=== PATIENT | male | born 1960 | race Caucasian/White ===

== ENCOUNTER 2020-04-21 08:32 | Outpatient (CLI) | payer OTHER, SELFPAY ==
--- NOTE | 2020-04-21 10:04 | XR_ITS ---
WS: [id number] Right shoulder, 2 views, 04/21/2020 Clinical Data: R SHOULDER PAIN Comparison: None. Findings: No fractures or dislocations are seen. The AC joint is normal. The adjacent right clavicle, right sca pula and ribs are normal. The soft tissues are unremarkable. XR/XR shoulder RT min 2V* [id number] Impression: Negative right shoulder.
[2020-04-21 10:29] LABS: Basophils % 0.5 %; Eosinophils # 0.1 10^3/uL (0.0-0.8); Eosinophils % 2.5 %; Hematocrit 41.6 % (42.0-52.0); Hemoglobin 13.3 g/dL (11.7-16.6); Lymphocytes # 1.7 10^3/uL (0.8-4.8); Lymphocytes % 42.9 %; Mean Corpuscular Hemoglobin 29.2 pg (28.0-34.0); Mean Corpuscular Volume 91.4 fL (80-94); Mean Platelet Volume 8.3 fL (7.4-10.4); Monocytes # 0.4 10^3/uL (0.2-0.9); Monocytes % 10.4 %; Neutrophils # 1.76 10^3/uL (1.8-7.7); Neutrophils % 43.7 %; Nucleated Red Blood Cells % 0 %; Platelet Count 269 10^3/cmm (130-400); Red Blood Count 4.55 10^6/uL (4.1-5.3); Red Cell Distribution Width 18.3 % (12.1-15.1)
[2020-04-21 11:05] LABS: Alanine Aminotransferase 23 U/L (0-41); Albumin Level 4.1 g/dL (3.5-5.2); Alkaline Phosphatase 134 IU/L (40-130); Anion Gap 16.4 (5-19); Aspartate Amino Transferase 30 U/L (0-40); Blood Urea Nitrogen 8 mg/dL (6-20); Calcium 9.4 mg/dL (8.5-10.5); Carbon Dioxide 26 mmol/L (22-29); Chloride 101 mmol/L (98-107); Globulin 3.3 g/dL (1.3-4.6); Glomerular Filtration Rate 171.4 mL/min (90-130); Glucose 121 mg/dL (65-115); Iron 65 ug/dL (59-158); Osmolality Calculated 290 mOsm/kg (285-295); Percent Saturation 13.2 % (20-50); Potassium 3.4 mmol/L (3.5-5.1); Sodium 140 mmol/L (136-145); Thyroid Stimulating Hormone 0.76 uIU/mL (0.27-4.20); Total Bilirubin 0.3 mg/dL (0.15-1.2); Total Iron Binding Capacity 490 mcg/dl; Total Protein 7.4 g/dL (6.6-8.7); Unsaturated Iron Binding 425 ug/dL (112-347)
--- NOTE | 2020-04-21 18:35 | ONC FU_ITS ---
Dr. Park Patient Follow-Up Note Patient: Jorje Bee Unit #: [id number]: [id number] Dicatated By: Beau Park M.D.Date of Visit:Apr 21, 2020 Onc Med Follow-up/Prog Note Chief Complaint: Thromboembolism. History of Present Illness: This is a 59 year-old man with right lower extremity deep vein thrombosis and pulmonary emboli. He has hypertension and he has had some mild degenerative arthritis. He has had no other prior medical illnesses. He has had numerous remote injuries. He had suffered an injury to his right knee about 2 years ago, significant enough that it caused the knee to swell up. On 08/23/2017 he presented to the emergency room with swelling and aching in his right leg of 2 days duration. Venous Doppler showed evidence of deep vein thrombosis involving the right popliteal vein and peroneal trunk. He was placed on overnight observation and treated initially with a apixaban 10 mg twice a day. On 08/26/2017 he reported increased pain and swelling in the right leg. His repeat venous Doppler showed progressed right leg deep vein thrombosis with extension into the mid right superficial femoral vein through the distal right superficial femoral vein and through right popliteal and peroneal veins. There was additional thrombus in the anterior tibial vein. The right greater saphenous vein was noted to be occluded below the knee. Further evaluation with CT scans of the chest, abdomen, and pelvis on 08/28/2017 showed linear opacification at the right lung base. The appearance favored atelectasis, though follow-up chest CT in 3 months was recommended to exclude neoplasm. Also noted were filling defects in proximal right and left pulmonary arteries with extension into multiple branches of the lower lobes consistent with at least moderate pulmonary emboli. And indeterminate lytic lesion was noted in the right ilium measuring 7 mm. The appearance was consistent with early metastatic site versus benign bone lesion. A cystic area in the central superior enlarged prostate gland was felt to be probably a utricle cyst. He was then admitted to the hospital and placed on an IV heparin drip, subsequently converted to Lovenox 1 mg/kg every 12 hours. He was discharged home on 09/01/2017 to continue Lovenox therapy as an outpatient. His further evaluation included bone scan which showed no evidence of metastatic disease and skeletal survey which showed no radiographic evidence of neoplastic process. His serum protein electrophoresis showed a subtle peak in the mid gamma region which appeared to show IgG specificity. It was not felt to be a diagnostic finding, but felt to possibly represent a very low concentration of paraprotein. A serum free light chain assay showed free kappa light chain 27.29 mg/L, free lambda light chain 29.43 mg/L, and normal kappa/lambda ratio at 0.93. He was not anemic, but his red cell indices were slightly macrocytic. He had normal renal function with BUN 4 and creatinine 0.6 mg/dL. He had mildly elevated total bilirubin at 1.9 mg/dL and slightly elevated alkaline phosphatase level. Calcium was normal at 7.7 mg/dL with albumin 2.3 g/dL. I had seen him initially on 09/20/2017. At that time there was still significant residual swelling of the right leg, with right leg calf circumference measuring 5 cm greater than the left. A repeat venous Doppler on 10/10/2017 showed evidence of chronic occlusive DVT of the popliteal vein. Initially he had continued anticoagulation with Lovenox. As his symptoms were not improving, I had contacted an invasive radiologist in [place], but with involvement limited to the popliteal vein, it was felt that he was not a candidate for thrombolysis or other intervention. His anti-Xa level was confirmed to be therapeutic. I had seen him for a follow-up visit on 11/12/2017 and his anticoagulation was subsequently transitioned to a apixaban. His medical history is otherwise significant for hypertension and degenerative arthritis. He has a history of smoking 1 pack of cigarettes daily. He sometimes chews tobacco. He has had at least moderate alcohol use. INTERIM HISTORY: In February 2018 he had called and reported increased pain in his right leg. A repeat venous Doppler on 03/03/2018 showed evidence of acute right lower extremity deep vein thrombosis. At that point his anticoagulation was changed back to therapeutic Lovenox. As of his follow-up visit in September 2018 he restarted treatment with rivaroxaban 20 mg daily. He is seen for a follow-up visit. Since I last saw him he has continued to have chronic pain in the right leg. The pain had been managed with hydrocodone/APAP, but he had to stop taking it when he was laid off work and had no insurance. He had recently been evaluated at [facility] with fairly acute onset of more severe pain in his right leg. His venous Doppler, though, reportedly just showed chronic changes. He says his energy has been pretty good, though he does have some fatigue. He is back to work again. ECOG score is 0. His appetite is good. He is not having fever or night sweats. He does have some chronic cough and he is still smoking. He does not complain of shortness of breath or chest pain. He occasionally has acid reflux. His bowels are generally loose and recently has had diarrhea. He has not been aware of any blood in the stool. He has no complaints. He also has chronic neck pain and recently has had increased pain in his right shoulder. He also complains that both legs hurt at night. His thinks he has restless leg syndrome. He does not complain of headache or dizziness. He occasionally has numbness/tingling. Medications: AmLODIPine Besylate 1 Tablet (of 5 mg) Oral daily, B-12 1 Tablet (of 1000 mcg) Oral b.i.d., B-Complex 1 Tablet Oral daily, Carvedilol 1 Tablet (of 25 mg) Oral b.i.d., Garlic 1 (1000 mg) Capsule Oral b.i.d., Hydrocodone-Acetaminophen 1 - 2 Tablet (of 10-325 mg) Oral q 4 to 6 hours PRN, Multivitamin Adult 1 Tablet Oral daily, Ben Bolt-3 1 Capsule (of 2400 mg) Oral b.i.d., Rivaroxaban 1 (20 mg) Tablet Oral daily, Vitamin C 1 (1000 mg) Capsule Oral b.i.d. Allergies: No Known Allergies. Vital Signs: Performed on Apr 21, 2020 08:52 Height - 69.00 in Weight - 180 lbs (HIGH) BSA - 1.98 sq.m BMI - 26.58 Temperature - 97.8 F (LOW) Pulse - 74 /min Respiration - 16 /min BP - 155/94 mm(hg) (HIGH) O2 Sat - 97 % Pain - 9 Physical Examination: Constitutional - He looks pretty good generally, Eyes - Sclerae nonicteric. Conjunctivae clear, ENMT - No lesions noted in the oral cavity, Hematologic/Lymphatic - No cervical, clavicular, or axillary adenopathy, Respiratory - Lungs are clear with good air movement bilaterally, Cardiovascular - Heart rhythm is regular. There is no murmur, gallop, or rub noted, Abdomen - Soft. Liver and spleen are not enlarged. There is no abdominal mass or ascites noted and there is no inguinal adenopathy, Extremities - There chronic venous stasis changes in the right leg. There is currently no edema, Neurologic - No focal neurologic deficits noted. Lab/Imaging: Test performed on Apr 21, 2020 10:23 Iron 65 mcg/dL Sodium 140 mmol/L TSH 0.76 uIU/mL Iron Binding Capacity (TIBC) 490 mcg/dl Potassium 3.4 mmol/L % Iron Saturation 13.2 % Chloride 101 mmol/L CO2 26 mmol/L UIBC 425 mcg/dL Anion Gap 16.4 BUN 8 mg/dL Creatinine 0.5 mg/dL Cr Clearance (Est) 188.2400 mL/min eGFR 171.4 mL/min Glucose 121 mg/dL Osmolality - Calculated 290 mOsm/kg Calcium 9.4 mg/dL Protein, Total 7.4 g/dL Albumin 4.1 g/dL Globulin 3.3 g/dL Bilirubin, Total 0.3 mg/dL ALT (SGPT) 23 U/L AST (SGOT) 30 U/L Alkaline Phosphatase 134 IU/L WBC 4.0 10 3/uL RBC 4.55 10 6/uL HGB 13.3 g/dL HCT 41.6 % MCV 91.4 fL MCH 29.2 pg MCHC 32.0 g/dL RDW 18.3 % Platelet Count 269 10 3/cmm MPV 8.3 fL Neutrophils 1.76 10 3/uL Lymphocytes 1.7 10 3/uL Monocytes 0.4 10 3/uL Eosinophils 0.1 10 3/uL Basophils 0.0 10 3/uL Neutrophil % 43.7 % Lymphocyte % 42.9 % Monocyte % 10.4 % Eosinophil % 2.5 % Basophils % 0.5 % NRBC % 0 % Problem List: 1. History of unprovoked thromboembolism including right lower extremity deep vein thrombosis and pulmonary emboli in August 2017. 2. Hypertension. 3. Degenerative arthritis. Problems Addressed with this Encounter and Plan: 1. History of unprovoked thromboembolism including right lower extremity deep vein thrombosis and pulmonary emboli in August 2017. He subsequently developed evidence of chronic thrombosis/venous stasis in the right leg, and he has chronic pain associated with it. There has been no evidence, though, of any new thromboembolism since he began anticoagulation with rivaroxaban in September 2018. In the absence of any evidence of new thrombosis he will continue treatment with rivaroxaban 20 mg daily. I will see him again in 6 months. In the meantime, he also will be given a prescription to restart hydrocodone 10/APAP 325 twice a day as needed. 2. Degenerative arthritis. He has chronic neck pain. Recently has had increased pain in his right shoulder. This may be related to a previous injury. He will be scheduled for x-ray of the right shoulder today and he will have further evaluation with MRI as indicated. Signed By: Beau Park M.D. <<Signature on File>>
== END 2020-04-21 08:33 | disposition home or self-care (01) ==
PROVIDERS: Family Provider Family Medicine; PCP Family Medicine; Visit Provider Internal Medicine Medical Oncology
DX: I82.401 Acute embolism and thrombosis of unspecified deep veins of right lower extremity (principal); I26.99 Other pulmonary embolism without acute cor pulmonale; I10 Essential (primary) hypertension; M19.90 Unspecified osteoarthritis, unspecified site; Z79.01 Long term (current) use of anticoagulants; M54.2 Cervicalgia; M25.511 Pain in right shoulder; D50.9 Iron deficiency anemia, unspecified
CPT/HCPCS: 36415; 73030; 80053; 83540; 83550; 84443; 85025; 99214

== ENCOUNTER 2020-06-20 07:06 | Outpatient (CLI) | payer OTHER, SELFPAY ==
--- NOTE | 2020-06-20 07:10 | MR_ITS ---
WS: [id number] MRI RIGHT SHOULDER NONCONTRAST TECHNIQUE: Sagittal T2, coronal T1, T2 and proton density imaging. Axial gradient PDE imaging. CLINICAL INFORMATION: RIGHT SHOULDER PAIN COMPARISON: None. FINDINGS: Advanced degenerative arthritis AC joint with mild edema. Small amount subacromial/subdeltoid fluid. Chronic thinning with calcific tendinitis involving the distal supraspinatus. Tendinopathy involving the distal supraspinatus. Small intrasubstance tear at the level of the acromion. Infraspinatus is in tact. Normal teres minor. Chronic thinning and tendinopathy of the distal subscapularis. Normal biceps tend on in the bicipital groove. Normal biceps labral anchor. Degenerative fraying of the glenoid labrum. MR/MR shoulder RT wo con* [id number] IMPRESSION: 1. Advanced osteoarthritis at the AC joint with mild edema. 2. Diffuse thinning with tendinopathy and chronic thinning involving the supra spinatus. Small intrasubstance tear at the level of the acromion. 3. Normal infraspinatus and teres minor. 4. Chronic thinning with tendinopathy involving the distal subscapularis. 5. Normal biceps tendon in the bicipital groove. 6. Advanced degenerative arthritis at the glenohumeral joint. 7. Normal biceps labral anchor.
== END 2020-06-20 07:07 | disposition home or self-care (01) ==
LOC: RADSHAW 07:08
PROVIDERS: PCP Family Medicine; Visit Provider Internal Medicine Medical Oncology
DX: M25.511 Pain in right shoulder (principal); M19.011 Primary osteoarthritis, right shoulder; R60.0 Localized edema
CPT/HCPCS: 73221

== ENCOUNTER 2021-01-30 12:55 | Emergency (ER) | payer OTHER, SELFPAY ==
[2021-01-30 12:59] VITALS: BP 168/92; PULSE 77; RESP 18; TEMP 37.4; O2SAT 95; BMI 26.6
--- NOTE | 2021-01-30 13:07 | W.ED.EXTPRO ---
HPI - Extremity Problem General: Chief complaint: Extremity Problem,Nontraumatic Stated complaint: DVT Time Seen by Provider: 01/30/21 13:07 History of Present Illness: HPI Narrative: Mr. Bee is a 60-year-old gentleman with significant history of DVTs on Xarelto presents the emergency department due to right thigh pain. He reports over the past week has had diarrhea and generalized malaise but no other specific infectious symptoms. He has spent most the time on his recliner. He started having aching in his right thigh with radiation up to the top of his leg and groin starting yesterday. Intensity is moderate. Course has persisted. This was nontraumatic in nature. This feels similar to prior DVTs though the radiation upwards is slightly different. He reports compliance with his Xarelto. He tested negative for Covid at clinic. He denies other changes in health, specific exacerbating or alleviating factors. Review of Systems General: Reports: 10 or more systems reviewed and unremarkable except in HPI and below Physical Exam Narrative: EXAM NARRATIVE: GENERAL/CONSTITUTIONAL - well-appearing. No acute distress. Eyes -no scleral icterus, no conjunctival injection ENMT - Atraumatic external nose and ears. Moist mucous membranes NECK - supple. trachea midline CARDIOVASCULAR - regular rate and rhythm. Peripheral pulses 2+ and equal. RESPIRATORY -clear to auscultation bilaterally. No retractions or accessory muscle use. ABDOMEN/GI -mild tenderness in right upper quadrant. No tenderness to percussion or evidence of peritonitis MSK - Extremities without obvious deformity. No skin changes or mass. There is tenderness palpation of right thigh medially SKIN - Warm, Dry NEURO - alert and appropriately oriented. Moves all extremities equally. PSYCH - Appropriate mood and affect Course ED course: - Patient was seen and evaluated by me at bedside - Patient placed on cardiac monitors, IV access obtained - Initial evaluation notable for exam as noted above, nontoxic. - X-ray without acute fracture identified. Impingement test on physical exam after x-ray read normal. No evidence of DVT. Upon reevaluation the patient expressed more concern regarding diarrhea and abdominal symptoms. At that time additional work-up ordered. - Labs notable for no leukocytosis. Metabolic panel with likely mild dehydration. Urinalysis not concerning for urinary tract infection. - Imaging notable for likely enterocolitis. No blood in stool reported in history. Symptoms < 10 days. - Upon serial reexamination after treatment the patient was mildly improved - Based on patient history, evaluation, labs, and imaging as interpreted the most likely cause of the patient's condition is enterocolitis. I discussed potential treatment options the patient is comfortable with likely viral diagnosis at this time with close follow-up. - The results of ED evaluation were discussed with the patient including prescriptions and/or symptomatic cares (if applicable) including appropriate and responsible use, followup plan, and return precautions. The patient verbalized understanding and felt safe for discharge. - Patient discharged in satisfactory condition. Vital Signs: Vital signs: Vital Signs Temperature 99.4 F 01/30/21 12:59 Pulse Rate 72 01/30/21 17:33 Respiratory Rate 18 01/30/21 17:33 Blood Pressure 157/85 01/30/21 17:33 Pulse Oximetry 98 01/30/21 17:33 MDM - Extremity (Nontraumatic) Medical Records: Attestation: I reviewed the patient's medical records. Lab Data: Attestation: I reviewed the patient's lab results. Labs: Lab Results 01/30/21 01/30/21 01/30/21 14:22 15:35 15:35 WBC 7.9 10^3/uL 10^3/ uL (4.0-10.0) RBC 4.41 10^6/uL 10^6 /uL (4.1-5.3) Hgb 15.2 g/dL g/dL (11.7-16.6) Hct 42.4 % % (42.0-52.0) MCV 96.1 fl H fl (80-94) MCH 34.5 pg H pg (28.0-34.0) MCHC 35.8 g/dL g/dL (30.0-36.0) RDW 11.9 % L % (12.1-15.1) Plt Count 316 10^3/cmm 10^3 /cmm (130-400) MPV 8.9 fL fL (7.4-10.4) Neut % (Auto) 69.4 % % Lymph % (Auto) 21.2 % % Slope % (Auto) 8.0 % % Eos % (Auto) 0.8 % % Baso % (Auto) 0.3 % % Neut # (Auto) 5.46 10^3/uL 10^3 /uL (1.8-7.7) Lymph # (Auto) 1.7 10^3/uL 10^3/ uL (0.8-4.8) Slope # (Auto) 0.6 10^3/uL 10^3/ uL (0.2-0.9) Eos # (Auto) 0.1 10^3/uL 10^3/ uL (0.0-0.8) Baso # (Auto) 0.0 10^3/uL 10^3/ uL (0.0-0.1) Nucleated RBC % (a uto) 0 % % Nucleated RBCs # 0.0 /100WBC /100W BC Sodium 134 mmol/L L mmol /L (136-145) Potassium 3.5 mmol/L mmol/L (3.5-5.1) Chloride 97 mmol/L L mmol/ L (98-107) Carbon Dioxide 20 mmol/L L mmol/ L (22-29) Anion Gap 20.5 H (5-19) BUN 14 mg/dL mg/dL (6-20) Creatinine 0.5 mg/dL L mg/dL (0.7-1.2) GFR Calculation 170.8 mL/min H mL /min (90-130) Glucose 94 mg/dL mg/dL (65-115) Calculated Osmolal ity 278 mOsm/kg L mOs m/kg (285-295) Calcium 8.4 mg/dL L mg/dL (8.5-10.5) Total Bilirubin 1.3 mg/dL H mg/dL (0.15-1.2) AST 32 U/L U/L (0-40) ALT 18 U/L U/L (0-41) Alkaline Phosphata se 99 IU/L IU/L (40-130) Total Protein 7.2 g/dL g/dL (6.6-8.7) Albumin 4.0 g/dL g/dL (3.5-5.2) Globulin 3.2 g/dL g/dL (1.3-4.6) Urine Color [place] (Yellow) Urine Appearance Clear (CLEAR) Urine pH 7 (5-7) Ur Specific Gravit y 1.005 (1.005-1.030) Urine Protein Neg (Negative) Urine Glucose (UA) Norm (Normal) Urine Ketones Negative (Negative) Urine Blood Neg (Negative) Urine Nitrate Negative (Negative) Urine Bilirubin 1+ H (Negative) Urine Urobilinogen 1 mg/dL H mg/dL (Negative) Ur Leukocyte Abimbola ase Negative (Negative) Discharge Plan Discharge Patient Disposition: Home Clinical Impression: Acute pain of right thigh, Enterocolitis Condition: Stable Discharge Orders: Discharge ED (Routine); Ordered 01/30/21 Ordered By: Luis F Johns Referrals: Catrachito Hidalgo MD [Primary Care Provider] - Patient Instructions: Colitis (ED) Activity Restrictions/Additional Instructions: Thank you for visiting emergency department. You were seen and evaluated for hip and abdominal pain. Your hip pain is likely musculoskeletal nature as no blood clot was identified. You do have enterocolitis noted on CT scan, this is most likely secondary to a viral infection. Please follow-up with your primary care provider. Please ensure that you are staying hydrated. Please return to the emergency department for worsening symptoms or anything else that you are concerned about and feel needs emergency department evaluation. Stand Alone Forms: Work/School Release Coding Level of Care Code ED Chemical Dependency Counselor for Everardo Cruz
--- NOTE | 2021-01-30 13:19 | USCV_ITS ---
Jorje Bee Age: 60 Gender: M : 1960 Exam Date: 01/30/2021 13:35 Ordering Phys: Luis F Johns MD Technologist: Judy Savage [place] [facility] [place]: RLE pain, history DVT HISTORY: RLE pain, history DVT PROCEDURES: On the right side, the common femoral, superficial femoral, profunda femoral, popliteal, posterior tibial, greater saphenous veins and the peroneal trunk were identified and interrogated in the standard fashion. FINDINGS: Negative for RLE DVT. CONCLUSIONS No evidence of right lower extremity DVT. Kalia Shrestha MD (Electronically Signed) Final Date: 30 January 2021 16:26 S
--- NOTE | 2021-01-30 13:49 | XR_ITS ---
WS: [id number] Exam: XR hip RT 2-3V wo/w pel* [id number] Date/Time of Exam: 01/30/2021 1:52 PM Reason For Exam: hip/thigh pain No acute fracture or dislocation. The joint compartments well maintained. Normal soft tissues. Acetab ular morphology is noted that could cause femoral acetabular impingement. XR/XR hip RT 2-3V wo/w pel* [id number] IMPRESSION: 1. No fracture or dislocation. 2. Acetabular morphology which might be seen with femoral acetabular impingemen t. This should be correlated with clinical symptoms.
[2021-01-30 14:31] VITALS: BP 162/100; PULSE 85; RESP 16; O2SAT 97
[2021-01-30 14:35] LABS: Add Urine Microscopic? NO; Charge for UA Resulting for Rev
[2021-01-30 15:03] LABS: Glucose Urine UA Norm (Normal); Ketones Urine Negative (Negative); Protein Urine Neg (Negative); Specific Gravity, Urine 1.005 (1.005-1.030); Urine Appearance Clear (CLEAR); Urine Color Orange (Yellow); pH Urine 7 (5-7)
[2021-01-30 15:04] LABS: Bilirubin Urine 1+ (Negative); Blood Urine Neg (Negative); Leukocyte Esterase Urine Negative (Negative); Nitrate Urine Negative (Negative); Urobilinogen Urine 1 mg/dL (Negative)
--- NOTE | 2021-01-30 15:15 | CTR_ITS ---
PROCEDURE INFORMATION: Exam: CT Abdomen And Pelvis With Contrast Exam date and time: 01/30/2021 3:15 PM Age: 60 years old Clinical indication: Abdominal pain; Additional info: Diarrhea > 1 week, rlq pain TECHNIQUE: Imaging protocol: Computed tomography of the abdomen and pelvis with contrast. Radiation optimization: All CT scans at this facility use at least one of these dose optimization techniques: automated exposure control; mA and/or kV adjustment per patient size (includes targeted exams where dose is matched to clinical indication); or iterative reconstruction. Contrast material: OMNI 300; Contrast volume: 95 ml; Contrast route: INTRAVENOUS (IV); COMPARISON: CT Chest/Abdomen/Pelvis w IV* 08/28/2017 1:05 PM RADIATION DOSE METRICS: Total DLP (mGy-cm): 1483.93 FINDINGS: Liver: Normal. No mass. Gallbladder and bile ducts: Normal. No calcified stones. No ductal dilation. Pancreas: Normal. No ductal dilation. Spleen: Normal. No splenomegaly. Adrenal glands: Normal. No mass. Kidneys and ureters: Normal. No hydronephrosis. Stomach and bowel: There is probable wall thickening of the ascending and transverse colons versus underdistention. There also air-fluid levels in small bowel. No bowel obstruction or pneumatosis. Bowel evaluation is limited without intraluminal contrast. Appendix: No evidence of appendicitis. Intraperitoneal space: Unremarkable. No free air. No significant fluid collection. Vasculature: Unremarkable. No abdominal aortic aneurysm. Lymph nodes: Unremarkable. No enlarged lymph nodes. Urinary bladder: Unremarkable as visualized. Reproductive: There is a cystic area in the prostate as before. Bones/joints: Unremarkable. No acute fracture. Soft tissues: Unremarkable. CT/CT abdomen pelvis w con* [id number] IMPRESSION: Findings are suggestive of enterocolitis.Clinical correlation is advised. Radiation Dose CTDIVOL = (mGy): DLP = 1483.93 (mGy-cm)
[2021-01-30] MEDS: sodium chloride 0.9% 1,000 ML 999 ML IV (15:29)
[2021-01-30 15:45] LABS: Basophils % 0.3 %; Eosinophils # 0.1 10^3/uL (0.0-0.8); Eosinophils % 0.8 %; Hematocrit 42.4 % (42.0-52.0); Hemoglobin 15.2 g/dL (11.7-16.6); Lymphocytes # 1.7 10^3/uL (0.8-4.8); Lymphocytes % 21.2 %; Mean Corpuscular HGB Conc 35.8 g/dL (30.0-36.0); Mean Corpuscular Hemoglobin 34.5 pg (28.0-34.0); Mean Corpuscular Volume 96.1 fl (80-94); Mean Platelet Volume 8.9 fL (7.4-10.4); Monocytes # 0.6 10^3/uL (0.2-0.9); Neutrophils # 5.46 10^3/uL (1.8-7.7); Neutrophils % 69.4 %; Nucleated Red Blood Cells % 0 %; Platelet Count 316 10^3/cmm (130-400); Red Blood Count 4.41 10^6/uL (4.1-5.3); Red Cell Distribution Width 11.9 % (12.1-15.1); White Blood Count 7.9 10^3/uL (4.0-10.0)
[2021-01-30] MEDS: iohexol 300 mg/mL 100 mL Btl IV (15:55)
[2021-01-30 16:03] LABS: Alanine Aminotransferase 18 U/L (0-41); Alkaline Phosphatase 99 IU/L (40-130); Blood Urea Nitrogen 14 mg/dL (6-20); Calcium 8.4 mg/dL (8.5-10.5); Carbon Dioxide 20 mmol/L (22-29); Chloride 97 mmol/L (98-107); Globulin 3.2 g/dL (1.3-4.6); Glomerular Filtration Rate 170.8 mL/min (90-130); Glucose 94 mg/dL (65-115); Osmolality Calculated 278 mOsm/kg (285-295); Sodium 134 mmol/L (136-145); Total Bilirubin 1.3 mg/dL (0.15-1.2); Total Protein 7.2 g/dL (6.6-8.7)
[2021-01-30 16:08] LABS: Anion Gap 20.5 (5-19); Aspartate Amino Transferase 32 U/L (0-40); Potassium 3.5 mmol/L (3.5-5.1)
[2021-01-30 17:33] VITALS: BP 157/85; PULSE 72; RESP 18; O2SAT 98
== END 2021-01-30 17:35 | disposition home or self-care (01) ==
PROVIDERS: Emergency Provider Emergency Medicine; PCP Family Medicine
DX: M79.651 Pain in right thigh (principal); K52.9 Noninfective gastroenteritis and colitis, unspecified
CPT/HCPCS: 73502; 74177; 80053; 81003; 85025; 93971; 96360; 99283; J7030; Q9967

== ENCOUNTER 2021-02-20 14:12 | Outpatient (CLI) | payer OTHER, SELFPAY ==
--- NOTE | 2021-02-21 07:12 | ONC FU_ITS ---
Dr. Park Patient Follow-Up Note Patient: Jorje Bee Unit #: [id number]: 1960 Dicatated By: Beau Park M.D.Date of Visit:Feb 20, 2021 Onc Med Follow-up/Prog Note Chief Complaint: Thromboembolism. History of Present Illness: This is a 60 year-old man with right lower extremity deep vein thrombosis and pulmonary emboli. He has hypertension and he has had some mild degenerative arthritis. He has had no other prior medical illnesses. He has had numerous remote injuries. He had suffered an injury to his right knee about 2 years ago, significant enough that it caused the knee to swell up. On 08/23/2017 he presented to the emergency room with swelling and aching in his right leg of 2 days duration. Venous Doppler showed evidence of deep vein thrombosis involving the right popliteal vein and peroneal trunk. He was placed on overnight observation and treated initially with a apixaban 10 mg twice a day. On 08/26/2017 he reported increased pain and swelling in the right leg. His repeat venous Doppler showed progressed right leg deep vein thrombosis with extension into the mid right superficial femoral vein through the distal right superficial femoral vein and through right popliteal and peroneal veins. There was additional thrombus in the anterior tibial vein. The right greater saphenous vein was noted to be occluded below the knee. Further evaluation with CT scans of the chest, abdomen, and pelvis on 08/28/2017 showed linear opacification at the right lung base. The appearance favored atelectasis, though follow-up chest CT in 3 months was recommended to exclude neoplasm. Also noted were filling defects in proximal right and left pulmonary arteries with extension into multiple branches of the lower lobes consistent with at least moderate pulmonary emboli. And indeterminate lytic lesion was noted in the right ilium measuring 7 mm. The appearance was consistent with early metastatic site versus benign bone lesion. A cystic area in the central superior enlarged prostate gland was felt to be probably a utricle cyst. He was then admitted to the hospital and placed on an IV heparin drip, subsequently converted to Lovenox 1 mg/kg every 12 hours. He was discharged home on 09/01/2017 to continue Lovenox therapy as an outpatient. His further evaluation included bone scan which showed no evidence of metastatic disease and skeletal survey which showed no radiographic evidence of neoplastic process. His serum protein electrophoresis showed a subtle peak in the mid gamma region which appeared to show IgG specificity. It was not felt to be a diagnostic finding, but felt to possibly represent a very low concentration of paraprotein. A serum free light chain assay showed free kappa light chain 27.29 mg/L, free lambda light chain 29.43 mg/L, and normal kappa/lambda ratio at 0.93. He was not anemic, but his red cell indices were slightly macrocytic. He had normal renal function with BUN 4 and creatinine 0.6 mg/dL. He had mildly elevated total bilirubin at 1.9 mg/dL and slightly elevated alkaline phosphatase level. Calcium was normal at 7.7 mg/dL with albumin 2.3 g/dL. I had seen him initially on 09/20/2017. At that time there was still significant residual swelling of the right leg, with right leg calf circumference measuring 5 cm greater than the left. A repeat venous Doppler on 10/10/2017 showed evidence of chronic occlusive DVT of the popliteal vein. Initially he had continued anticoagulation with Lovenox. As his symptoms were not improving, I had contacted an invasive radiologist in [place], but with involvement limited to the popliteal vein, it was felt that he was not a candidate for thrombolysis or other intervention. His anti-Xa level was confirmed to be therapeutic. I had seen him for a follow-up visit on 11/12/2017 and his anticoagulation was subsequently transitioned to a apixaban. In February 2018 he had called and reported increased pain in his right leg. A repeat venous Doppler on 03/03/2018 showed evidence of acute right lower extremity deep vein thrombosis. At that point his anticoagulation was changed back to therapeutic Lovenox. As of his follow-up visit in September 2018 he restarted treatment with rivaroxaban 20 mg daily. His medical history is otherwise significant for hypertension and degenerative arthritis. He has a history of smoking 1 pack of cigarettes daily. He sometimes chews tobacco. He has had at least moderate alcohol use. INTERIM HISTORY: On 01/30/2021 he was seen in the emergency room with acute onset of pain in his right thigh. He was noted to have tenderness in the medial aspect of the right thigh, but no other abnormal findings were reported on his physical exam. His venous Doppler showed no evidence of right lower extremity deep vein thrombosis. At that time he also had been having nausea/vomiting for [address] abdomen/pelvis did show findings suggestive of enterocolitis. It was presumed to be viral. He is seen for a follow-up visit. He indicates that subsequent to his ER visit he developed bruising from his upper right thigh down to him below his right knee. He describes it having been purple to black-colored. It has been slowly resolving. He says he feels fatigued most of the time, but he is still working. ECOG score is 0. He has good appetite. He has no fever or night sweats. He has allergy related sinus symptoms. He has not had sore mouth or throat. He has normal cough. His breathing has been okay. He does not complain of chest pain. His nausea/vomiting has resolved. He still has loose stools, but that is chronic. He takes Imodium as needed. He has no complaints. He has chronic pain in his right leg, and that has worsened with this recent episode. He also has pain in his neck and right shoulder, and he has some pain in the right hip. He does not complain of headache or dizziness. He sometimes has numbness. Medications: AmLODIPine Besylate 1 Tablet (of 5 mg) Oral daily, B-12 1 Tablet (of 1000 mcg) Oral b.i.d., B-Complex 1 Tablet Oral daily, Carvedilol 1 Tablet (of 25 mg) Oral b.i.d., Garlic 1 (1000 mg) Capsule Oral b.i.d., Hydrocodone-Acetaminophen 1 - 2 Tablet (of 10-325 mg) Oral q 4 to 6 hours PRN, Multivitamin Adult 1 Tablet Oral daily, [place]-3 1 Capsule (of 2400 mg) Oral b.i.d., Rivaroxaban 1 (20 mg) Tablet Oral daily, Vitamin C 1 (1000 mg) Capsule Oral b.i.d. Allergies: No Known Allergies. Vital Signs: Performed on Feb 20, 2021 14:41 Height - 69.00 in Weight - 182.6 lbs (HIGH) BSA - 1.99 sq.m BMI - 26.97 Temperature - 98.0 F (LOW) Pulse - 90 /min Respiration - 18 /min BP - 172/94 mm(hg) (HIGH) O2 Sat - 97 % Pain - 6 Fatigue - 7 Physical Examination: Constitutional - He looks pretty good generally, Eyes - Sclerae nonicteric. Conjunctivae clear, ENMT - No lesions noted in the oral cavity, Hematologic/Lymphatic - No cervical, clavicular, or axillary adenopathy, Respiratory - Lungs are clear with good air movement bilaterally, Cardiovascular - Heart rhythm is regular. There is no murmur, gallop, or rub noted, Abdomen - Soft. Liver and spleen are not enlarged. There is no abdominal mass or ascites noted and there is no inguinal adenopathy, Extremities - There are chronic venous stasis changes in the right leg. There is resolving ecchymosis in the lower medial aspect of the right thigh and in the upper right calf posteriorly. There is no edema, Neurologic - No focal neurologic deficits noted. Lab/Imaging: Laboratory studies from 01/30/2021 included CBC showing hemoglobin 15.2 g, white blood cell count 7900, and platelet count 316,000. Comprehensive metabolic profile showed normal renal function with BUN 14 and creatinine 0.5 mg/dL. Total bilirubin was slightly elevated 1.3 mg/dL. The liver enzymes were normal. Problem List: 1. History of unprovoked thromboembolism including right lower extremity deep vein thrombosis and pulmonary emboli in August 2017. 2. Hypertension. 3. Degenerative arthritis. Problems Addressed with this Encounter and Plan: 1. Patient with history of unprovoked thromboembolism including right lower extremity deep vein thrombosis and pulmonary emboli in August 2017. He subsequently developed evidence of chronic thrombosis/venous stasis in the right leg, and he has chronic pain associated with it. There has been no evidence, though, of any new thromboembolism since he began anticoagulation with rivaroxaban in September 2018. He had a recent episode of increased pain in the right thigh with subsequent development of significant ecchymosis extending down the medial aspect of the right thigh into the right calf. His venous Doppler at the time the pain started showed no evidence of deep vein thrombosis. As such, I suspect this was a local hemorrhage, but it is uncertain what may have precipitated it. In any case, it does appear to be resolving, and he will continue anticoagulation with rivaroxaban 20 mg daily. He also will continue hydrocodone/APAP for the chronic pain, as it has allowed him to continue working. He will be scheduled for a follow-up visit in 6 months. 2. He has had chronic loose stools/diarrhea. A specific cause has not been determined. He will be given the option to try colestipol at a dosage of 2 g once or twice daily as needed. Signed By: Beau Park M.D. <<Signature on File>>
== END 2021-02-20 14:13 | disposition home or self-care (01) ==
LOC: ONCMED 14:16
PROVIDERS: PCP Family Medicine; Visit Provider Internal Medicine Medical Oncology
DX: I87.8 Other specified disorders of veins (principal); R58 Hemorrhage, not elsewhere classified; M79.651 Pain in right thigh; G89.29 Other chronic pain; I10 Essential (primary) hypertension; F17.220 Nicotine dependence, chewing tobacco, uncomplicated; Z79.01 Long term (current) use of anticoagulants; Z86.718 Personal history of other venous thrombosis and embolism; Z86.711 Personal history of pulmonary embolism
CPT/HCPCS: 99214

== ENCOUNTER 2021-09-27 13:42 | Oncology outpatient (recurring) (ONCR) | payer OTHER, SELFPAY | END 2021-10-15 23:59 | disposition home or self-care (01) | PROVIDERS: PCP Family Medicine; Visit Provider Internal Medicine Medical Oncology | DX: Z53.9 Procedure and treatment not carried out, unspecified reason (principal) ==

== ENCOUNTER 2022-06-28 12:40 | Emergency (ER) | payer OTHER, SELFPAY ==
[2022-06-28 13:15] VITALS: BP 136/89; PULSE 76; RESP 14; TEMP 36.6; O2SAT 98
--- NOTE | 2022-06-28 14:31 | USCV_ITS ---
Jorje Bee Age: 61 Gender: M : 1960 Exam Date: 06/28/2022 14:42 Ordering Phys: Aniyah Trevino Technologist: CT Exam Location: [facility] – [place] Indication: pain, rt PROCEDURES: Venous duplex imaging was performed in only the right lower extremity. The following venous structures were evaluated: common femoral vein, profunda vein, proximal portion of the greater saphenous vein, superficial femoral vein, and the popliteal vein. In addition, the posterior tibial and peroneal trunk were evaluated. FINDINGS: Pt Hx od dvt. There appears to be some old thrombus in the posterior portion of the peroneal v. This is non occluding. Augment maneuvers were deferred CONCLUSIONS Chronic non-occlusive thrombus peroneal vein. No evidence of acute right lower extremity DVT. Kalia Shrestha MD (Electronically Signed) Final Date: 28 June 2022 16:22 S
[2022-06-28 15:42] VITALS: PULSE 74; RESP 14; O2SAT 96
--- NOTE | 2022-06-28 16:49 | W.ED.EXTPRO ---
HPI - Extremity Problem General: Chief complaint: Extremity Problem,Nontraumatic Stated complaint: possible blood clot Time Seen by Provider: 06/28/22 16:49 Source: patient Mode of arrival: ambulatory Limitations: no limitations History of Present Illness: Patient is a very nice 61-year-old male who presents to ED today with complaints of some pain to the posterior aspect of his right leg. Patient states he first noticed pain about a week ago and states it was intermittent but now has become a little more constant. He has not noticed any significant swelling but states he has had a DVT to that leg previously so it always is a little more swollen than the left. He has not noticed any redness or warmth. He has no complaints of shortness of breath, difficulty breathing, chest pain. He states he is on anticoagulation (xarelto) for the previous thrombus. He does admittedly missed 2 doses of that medication last week. MD Complaint: extremity pain Onset (ago): day(s) Pain Consistency: intermittent Location: right and lower extremity Radiation: none Relieving factors: nothing Exacerbating factors: nothing Associated symptoms: Reports no associated symptoms; Deny chest pain, fever(s) or rash Context: history of DVT Review of Systems Const: Denies: fever(s), chills, body aches, fatigue or malaise Card: Denies: chest pain Resp: Denies: dyspnea Musc: Reports: extremity pain and extremity swelling; Denies: neck pain, back pain, joint pain, joint swelling, joint redness or joint warmth Skin/Breast: Denies: rash Neuro: Denies: numbness in extremities, weakness in extremities or sensory changes PFS ED PFSH: Medical History Chronic deep vein thrombosis of right lower extremity Chronic venous stasis Degenerative arthritis History of pulmonary embolism Hypertension Surgical History Hx of reduction of closed fracture (1980) Closed reduction for bilateral leg fractures Social History Smoking and tobacco status: current every day smoker Alcohol intake: current Physical Exam Const: COMMON NORMALS: no acute distress, average body habitus, patient oriented x3, no limitations, healthy appearing, alert and well nourished GENERAL APPEARANCE: cooperative ORIENTATION/CONSCIOUSNESS: Yes awake, Yes oriented to person, Yes oriented to place and Yes oriented to time Resp: COMMON NORMALS: normal respiratory effort and clear to auscultation bilaterally AUSCULTATION: clear to auscultation bilaterally Cardio: COMMON NORMALS: regular rate and regular rhythm RATE: regular rate RHYTHM: regular rhythm Extremity: COMMON NORMALS: full ROM, capillary refill normal and no joint enlargement GENERAL: Yes normal exam except as noted RIGHT LOWER EXTREMITY: Yes upper leg, Yes knee joint and Yes lower leg OTHER: patient has some minor discomforts to the posterior aspect of his R LE; extremity slightly swollen when compared to L however patient states this is fairly normal; equivical Amelia's sign; DP/PT pulses normal with brisk cap refill and sensation noted; no joint effusions present; no overlying skin changes noted Neuro: COMMON NORMALS: patient oriented x3, moves all extremities, no focal motor deficits and no sensory deficits noted SENSORIUM/ORIENTATION: Yes alert, Yes oriented to person, Yes oriented to place and Yes oriented to time Skin: COMMON NORMALS: no rashes or lesions noted GENERAL SKIN EXAM: no rashes or lesions noted Course Vital Signs: Vital signs: Vital Signs Temperature 97.9 F 06/28/22 13:15 Pulse Rate 74 06/28/22 15:42 Respiratory Rate 14 06/28/22 15:42 Blood Pressure 136/89 06/28/22 13:15 Pulse Oximetry 96 06/28/22 15:42 Oxygen Delivery Me thod Room Air 06/28/22 15:42 MDM - Extremity (Nontraumatic) Medical Decision Making Patient's ultrasound of his right lower extremity showing no acute DVT. He does have a chronic appearing nonocclusive thrombus in his peroneal vein. Patient is already taking Xarelto so recommend he continue taking this medication with attention of taking it daily as prescribed and not missing any further doses. Recommend follow-up with primary care. Return to ED precautions given. Discharge Plan Discharge Patient Disposition: Home Clinical Impression: Chronic deep vein thrombosis of right lower extremity Qualifiers: Affected thrombotic vein of extremity: unspecified lower extremity distal vein Qualified Code(s): I82.5Z1 - Chronic embolism and thrombosis of unspecified deep veins of right distal lower extremity Condition: Stable Prescriptions: No Action amlodipine 5 mg tablet 5 mg PO DAILY colestipol 1 gram tablet 2 g PO BID Qty: 120 3RF Xarelto 20 mg tablet 20 mg PO DAILY Qty: 90 0RF carvedilol 25 mg tablet See Rx Instructions .ROUTE .COMPLEX Qty: 180 2RF Dose Instruction: TAKE ONE TABLET BY MOUTH TWICE DAILY as dirrected Rx Instructions: TAKE ONE TABLET BY MOUTH TWICE DAILY as dirrected hydrocodone-acetaminophen 10-325 mg tablet See Rx Instructions PO QID MDD 8 tabks daily PRN (Reason: pain) 30 Days Qty: 120 0RF Rx Instructions: 1-2 tablets orally four times daily PRN Discharge Orders: Discharge ED (Routine); Ordered 06/28/22 Ordered By: Aniyah Trevino Referrals: Catrachito Hidalgo MD [Primary Care Provider] - Coding Level of Care Code ED Physics Faculty Member for Everardo Cruz
== END 2022-06-28 16:54 | disposition home or self-care (01) ==
PROVIDERS: Emergency Provider Physician Assistant; PCP Family Medicine
DX: I82.5Z1 Chronic embolism and thrombosis of unspecified deep veins of right distal lower extremity (principal); Z79.01 Long term (current) use of anticoagulants
CPT/HCPCS: 93971; 99284

== ENCOUNTER → 2023-01-07 10:07 | Outpatient (BNVA) | payer OTHER, SELFPAY | PROVIDERS: PCP Family Medicine; Referring Provider Internal Medicine Medical Oncology; Visit Provider Anesthesiology Pain Medicine | DX: M17.11 Unilateral primary osteoarthritis, right knee (principal); M25.561 Pain in right knee | CPT/HCPCS: 73564 ==